=== PATIENT | female | born 1990 | race Caucasian/White ===

== ENCOUNTER 2020-04-02 20:48 | Emergency (ER) | payer OTHER ==
[2020-04-02 20:58] VITALS: BP 116/73; PULSE 85
[2020-04-02] MEDS ORDERED: Ketorolac 60 MG/2 ML SDV IM ONE (21:08)
[2020-04-02] MEDS ORDERED: Diazepam 2 MG Tab PO ONE (21:08)
[2020-04-02] MEDS ORDERED: HYDROmorphone 1 MG/ML Syringe IM ONE (21:08)
--- NOTE | 2020-04-02 21:14 | EDM.PDOC ---
ED HPI GENERAL MEDICAL PROBLEM - General Chief Complaint: Back Pain or Injury Stated Complaint: BACK PAIN Time Seen by Provider: 04/02/20 20:56 Source of Information: Reports: Patient History Limitations: Reports: No Limitations - History of Present Illness INITIAL COMMENTS - FREE TEXT/NARRATIVE: The patient presents with low back pain. She says this has been going no for about a week. She has a history of 2 compression fractures in her lumbar spine. She fell about 9 years ago. It was discovered about 4 years ago with an MRI. She had periods of pain since. This last time she does not recall any recent injury. She has no numbness or weakness. She has no bowel or bladder problems. Onset: Gradual Duration: Week(s): Location: Reports: Back Quality: Reports: Sharp Severity: Severe Improves with: Reports: Immobilization Worsens with: Reports: Movement Context: Denies: Trauma Associated Symptoms: Reports: No Other Symptoms Bilateral Lower Back Pain Score (Numeric/FACES): 10 - Related Data Allergies Allergy/AdvReac Type Severity Reaction Status Date / Time envirionmental Allergy Rash Uncoded 04/02/20 20:59 Home Meds: Home Meds Albuterol [Proventil HFA] 6.7 gm INH QID PRN 07/03/16 [History] Aspirin/Acetaminophen/Caffeine [Excedrin Migraine Caplet] 1 each PO DAILY PRN 04/02/20 [History] Past Medical History Cardiovascular History: Reports: None Respiratory History: Reports: Asthma Gastrointestinal History: Reports: None Genitourinary History: Reports: None ALLERGIST IMMUNOLOGIST History: Reports: None Musculoskeletal History: Reports: Back Pain, Chronic, Fracture Neurological History: Reports: Concussion, Migraines Psychiatric History: Reports: None Endocrine/Metabolic History: Reports: Obesity/BMI 30+ Hematologic History: Reports: None Immunologic History: Reports: None Oncologic (Cancer) History: Reports: None Dermatologic History: Reports: None - Infectious Disease History Infectious Disease History: Reports: None - Past Surgical History HEENT Surgical History: Reports: Tonsillectomy Social & Family History - Family History Family Medical History: Noncontributory - Tobacco Use Smoking Status *Q: Current Every Day Smoker Years of Tobacco use: 9 Packs/Tins Daily: 0.5 - Caffeine Use Caffeine Use: Reports: Energy Drinks - Recreational Drug Use Recreational Drug Use: No - Living Situation & Occupation Living situation: Reports: Single Occupation: Employed ED ROS GENERAL - Review of Systems Review Of Systems: See Below Constitutional: Reports: No Symptoms HEENT: Reports: No Symptoms Respiratory: Reports: No Symptoms Cardiovascular: Reports: No Symptoms Endocrine: Reports: No Symptoms GI/Abdominal: Reports: No Symptoms : Reports: No Symptoms Musculoskeletal: Reports: Back Pain Skin: Reports: No Symptoms Neurological: Reports: No Symptoms ED EXAM,LOWER BACK PAIN/INJURY - Physical Exam Exam: See Below Exam Limited By: No Limitations General Appearance: Alert, No Apparent Distress Ears: Normal External Exam Nose: Normal Inspection Head: Atraumatic, Normocephalic Neck: Normal Inspection Respiratory/Chest: No Respiratory Distress, Lungs Clear, Normal Breath Sounds Cardiovascular: Regular Rate, Rhythm, No Edema, No Murmur GI/Abdominal: Soft, Non-Tender, No Organomegaly, No Mass Back Exam: Other (Pain upon palpation to the lumbar spine) Extremities: Normal Inspection Neurological: Alert, No Motor/Sensory Deficits, Oriented x 3 Course - Vital Signs Last Recorded V/S: Last Vital Signs Temp 97.5 F 04/02/20 20:56 Pulse 85 04/02/20 20:56 Resp 18 04/02/20 20:56 BP 116/73 04/02/20 20:56 Pulse Ox 100 04/02/20 20:56 - Orders/Labs/Meds Meds: Medications Discontinued Medications Generic Name Dose Route Start Last Admin Trade Name Laisha PRN Reason Stop Dose Admin Diazepam 2 mg 04/02/20 21:08 04/02/20 21:25 Valium PO 04/02/20 21:09 2 mg ONETIME ONE Administration Hydromorphone HCl 1 mg 04/02/20 21:08 04/02/20 21:24 Dilaudid IM 04/02/20 21:09 1 mg ONETIME ONE Administration Ketorolac Tromethamine 60 mg 04/02/20 21:08 04/02/20 21:23 Toradol IM 04/02/20 21:09 60 mg ONETIME ONE Administration - Re-Assessments/Exams Free Text/Narrative Re-Assessment/Exam: 04/02/20 21:13 I ordered dilaudid 1mg IM, toradol 60mg IM and valium 2mg PO. 04/02/20 22:01 She feels better. She has a muscle relaxer at home. I will give her a few hydrocodone for at home. Departure - Departure Time of Disposition: 22:05 Disposition: Home, Self-Care 01 Condition: Good Clinical Impression: Low back pain Qualifiers: Chronicity: chronic Back pain laterality: midline Sciatica presence: without sciatica Qualified Code(s): M54.5 - Low back pain; G89.29 - Other chronic pain - Discharge Information *PRESCRIPTION DRUG MONITORING PROGRAM REVIEWED*: Not Applicable *COPY OF PRESCRIPTION DRUG MONITORING REPORT IN PATIENT CHELY: Not Applicable Referrals: Salome Mera NP [Primary Care Provider] - 1 Week Forms: ED Department Discharge Additional Instructions: Take your medication as prescribed and if that does not help, try the hydrocodone. Follow up with your provider and please return if you are worse. Sepsis Event Note (ED) - Evaluation Sepsis Screening Result: No Definite Risk - Focused Exam Vital Signs: Vital Signs Temp Pulse Resp BP Pulse Ox 04/02/20 20:56 97.5 F 85 18 116/73 100
== END 2020-04-02 22:15 | disposition home or self-care (01) ==
LOC: JD.ED 20:48
DX: G89.29 Other chronic pain (principal); M54.5 Low back pain; J45.909 Unspecified asthma, uncomplicated; E66.9 Obesity, unspecified; Z68.31 Body mass index [BMI] 31.0-31.9, adult; F17.210 Nicotine dependence, cigarettes, uncomplicated; Z79.82 Long term (current) use of aspirin; Z91.048 Other nonmedicinal substance allergy status
CPT/HCPCS: 96372; 99283; A9270; J1170; J1885

== ENCOUNTER 2020-08-07 16:39 | Emergency (ER) | payer OTHER ==
[2020-08-07 17:00] VITALS: BP 108/72; PULSE 72
[2020-08-07] MEDS ORDERED: HYDROmorphone 0.5 MG/0.5 ML Syringe IM ONE (17:04)
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
--- NOTE | 2020-08-08 14:48 | CR ---
Right shoulder: 3 views of the right shoulder were obtained. Comparison: Prior right shoulder study of 05/26/16. Findings: Glenohumeral joint and acromioclavicular joint appears within normal limits. No acute fracture, dislocation or other bony abnormality is appreciated. No abnormal soft tissue calcification is seen. Impression: 1. Nothing acute is seen on 3 view right shoulder study. Diagnostic code #1
== END 2020-08-07 18:16 | disposition home or self-care (01) ==
LOC: JD.ED 16:39
DX: M25.511 Pain in right shoulder (principal); F17.210 Nicotine dependence, cigarettes, uncomplicated; J45.909 Unspecified asthma, uncomplicated; E66.9 Obesity, unspecified; Z68.32 Body mass index [BMI] 32.0-32.9, adult; Z91.048 Other nonmedicinal substance allergy status
CPT/HCPCS: 73030; 96372; 99283; J1170

== ENCOUNTER 2022-12-23 09:25 | Emergency (ER) | payer MEDICAID, OTHER ==
[2022-12-23 09:34] VITALS: BP 111/65; PULSE 58
[2022-12-23] MEDS ORDERED: predniSONE 20 MG Tab PO ONE (10:45)
[2022-12-23] MEDS ORDERED: Famotidine 20 MG Tab PO ONE (10:45)
[2022-12-23] MEDS ORDERED: diphenhydrAMINE 25 MG Cap PO ONE (10:45)
== END 2022-12-23 12:51 | disposition home or self-care (01) ==
LOC: JD.ED 09:25
DX: T78.40XA Allergy, unspecified, initial encounter (principal); J45.909 Unspecified asthma, uncomplicated; E11.9 Type 2 diabetes mellitus without complications; E66.9 Obesity, unspecified; Z68.30 Body mass index [BMI] 30.0-30.9, adult; Z72.0 Tobacco use; Z79.82 Long term (current) use of aspirin
CPT/HCPCS: 99283; A9270; J7512

== ENCOUNTER 2023-01-14 19:05 | Emergency (ER) | payer MEDICAID ==
[2023-01-14 19:40] VITALS: BP 117/62; PULSE 60
[2023-01-14 20:36] LABS: BASOPHILS ABSOLUTE AUTO 0.04 K/mm3 (0.01-0.08); BASOPHILS PERCENT AUTO 0.3 % (0.1-1.2); EOSINOPHILS ABSOLUTE AUTO 0.23 K/mm3 (0.04-0.36); EOSINOPHILS PERCENT AUTO 1.8 (0.7-5.8); HEMATOCRIT 40.4 % (34.1-44.9); HEMOGLOBIN 13.9 gm/dl (11.2-15.7); IMMATURE GRAN ABSOLUTE AUTO 0.02 K/mm3 (0.00-0.10); IMMATURE GRAN PERCENT AUTO 0.2 % (<=1.0); LYMPHOCYTES PERCENT AUTO 26.9 % (19.3-51.7); MEAN CORPUSCULAR HEMOGLOBIN 30.5 pg (25.6-32.2); MEAN CORPUSCULAR HGB CONC 34.4 g/dl (32.2-35.5); MEAN CORPUSCULAR VOLUME 88.6 fl (79.4-94.8); MEAN PLATELET VOLUME 10.4 fl (9.4-12.3); MONOCYTES ABSOLUTE AUTO 1.15 K/mm3 (0.24-0.36); MONOCYTES PERCENT AUTO 8.8 % (4.7-12.5); NEUTROPHILS ABSOLUTE AUTO 8.06 K/mm3 (1.56-6.13); PLATELET COUNT,PLT 274 K/mm3 (182-369); RED BLOOD CELL COUNT 4.56 M/mm3 (3.98-5.22)
[2023-01-14 20:53] LABS: A/G RATIO 1.2 (1-2); ALANINE AMINOTRANSFERASE,ALT 32 U/L (14-59); ALBUMIN 3.8 g/dl (3.4-5.0); ALKALINE PHOSPHATASE 74 U/L (46-116); ANION GAP 11.5 (5-15); ASPARTATE AMNIOTRANSFERASE,AST 17 U/L (15-37); BILIRUBIN TOTAL 0.8 mg/dL (0.2-1.0); BLOOD UREA NITROGEN,BUN 17 mg/dL (7-18); CALCIUM 9.1 mg/dL (8.5-10.1); CARBON DIOXIDE,CO2 26 mEq/L (21-32); CHLORIDE,CL 104 mEq/L (98-107); ESTIMATED GFR 78 mL/min (>60); GLUCOSE RANDOM 130 mg/dL (70-99); POTASSIUM,K 3.5 mEq/L (3.5-5.1); PROTEIN TOTAL,TP 7.1 g/dl (6.4-8.2); SODIUM,NA 138 mEq/L (136-145)
== END 2023-01-14 21:38 | disposition home or self-care (01) ==
LOC: JD.ED 19:05
DX: T75.4XXA Electrocution, initial encounter (principal); J45.909 Unspecified asthma, uncomplicated; E11.9 Type 2 diabetes mellitus without complications; E66.9 Obesity, unspecified; F17.210 Nicotine dependence, cigarettes, uncomplicated; Z91.048 Other nonmedicinal substance allergy status; Z79.82 Long term (current) use of aspirin; Z79.899 Other long term (current) drug therapy
CPT/HCPCS: 36415; 70450; 70450-26; 80053; 85025; 93005; 93010; 99283; 99284